=== PATIENT | female | born 1935 | race Caucasian/White ===

== ENCOUNTER 2016-08-15 10:29 | Outpatient (CLI) | payer OTHER ==
--- NOTE | 2016-08-15 12:14 | DIAGNOSTIC IMAGING REPORT ---
PROCEDURE: MR BRAIN WITHOUT CONTRAST INDICATION: SEIZURE,DIPLOPIA R/O BRAIN TUMOR TECHNIQUE: Multiplanar multisequence MRI imaging of the brain without contrast. 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 Elsewhere, there has been an increase in diffuse cerebral cortical atrophy and multiple small patches of mild T2 hyperintensity throughout the deep white matter. There has been no change in the posterior fossa meningioma. No evidence of surrounding edema in the white matter. There is fluid in both maxillary sinuses. IMPRESSION: 1. 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 2. Stable calcified left posterior fossa meningioma. 3. Increase in the chronic small vessel ischemic changes in the white matter
== END 2016-08-15 23:00 | disposition home or self-care (01) ==
LOC: MRI SRH 10:29
DX: R56.9 Unspecified convulsions (principal); G93.89 Other specified disorders of brain; H53.2 Diplopia
CPT/HCPCS: 90074; 90100